=== PATIENT | female | born 1990 | race Caucasian/White ===

== ENCOUNTER 2019-12-17 21:39 | Emergency (ER) | payer BC ==
[2019-12-17] MEDS ORDERED: Albuterol/Ipratropium 3.0-0.5 MG/3 ML Neb Soln NEB ONE (22:13)
[2019-12-17] MEDS ORDERED: Albuterol 6.7 GM Inhaler INH ONE (22:14)
[2019-12-17] MEDS ORDERED: Amoxicillin 500 MG Cap PO ONE (22:17)
[2019-12-17] MEDS ORDERED: Azithromycin 250 MG Tab PO ONE (22:17)
--- NOTE | 2019-12-17 22:18 | EDM.PDOC ---
ED HPI GENERAL MEDICAL PROBLEM - General Chief Complaint: Fever Stated Complaint: POSSIBLE FLU Time Seen by Provider: 12/17/19 21:51 Source of Information: Reports: Patient History Limitations: Reports: No Limitations - History of Present Illness INITIAL COMMENTS - FREE TEXT/NARRATIVE: Patient is a 29-year-old female who presents with complaints of fever, chest pain, cough, and body aches for the last week. Patient states that her children were sick with similar symptoms, however they have gotten better however she feels like she is getting worse. She states when she lies down she can feel a crackling in her chest and her chest feels tight. She has had intermittent fevers at home current temp in the ER is 100.4, however she did recently have ibuprofen. She denies any significant shortness of breath. She has no chronic health conditions. Chest Pain Score (Numeric/FACES): 3 - Related Data Allergies Allergy/AdvReac Type Severity Reaction Status Date / Time No Known Allergies Allergy Verified 12/17/19 21:52 Home Meds: Home Meds Multivitamin with Minerals [Multiple Vitamin] 1 tab PO DAILY 03/17/15 [History] Amoxicillin 1,000 mg PO TID #14 capsule 12/17/19 [Rx] Azithromycin 250 mg PO BEDTIME 4 Days #4 tablet 12/17/19 [Rx] Past Medical History - Past Health History Medical/Surgical History: Denies Medical/Surgical History HEENT History: Reports: None Cardiovascular History: Reports: None Respiratory History: Reports: None Gastrointestinal History: Reports: None Genitourinary History: Reports: Renal Calculus [employer] History: Reports: Musculoskeletal History: Reports: None Neurological History: Reports: None Psychiatric History: Reports: None Endocrine/Metabolic History: Reports: None Hematologic History: Reports: None Immunologic History: Reports: None Oncologic (Cancer) History: Reports: None Dermatologic History: Reports: None - Infectious Disease History Infectious Disease History: Reports: None - Past Surgical History HEENT Surgical History: Reports: Tonsillectomy Social & Family History - Family History Family Medical History: Noncontributory Cardiac: Reports: Hypertension Other Oncologic Family History: grandparent - Tobacco Use Smoking Status *Q: Never Smoker - Caffeine Use Caffeine Use: Reports: Coffee - Recreational Drug Use Recreational Drug Use: No ED ROS GENERAL - Review of Systems Review Of Systems: Comprehensive ROS is negative, except as noted in HPI. ED EXAM, GENERAL - Physical Exam Exam: See Below Exam Limited By: No Limitations General Appearance: Alert, WD/WN, No Apparent Distress Ears: Normal External Exam, Normal Canal, Hearing Grossly Normal, Normal TMs Throat/Mouth: Normal Inspection, Normal Lips, Normal Teeth, Normal Gums, Normal Oropharynx, Normal Voice, No Airway Compromise Respiratory/Chest: No Respiratory Distress, No Accessory Muscle Use, Chest Non- Tender, Decreased Breath Sounds (Right lower lobe). No: Crackles, Rales, Rhonchi, Wheezing Cardiovascular: Normal Peripheral Pulses, Regular Rate, Rhythm, No Edema, No Gallop, No JVD, No Murmur, No Rub Neurological: Alert, Oriented, CN II-XII Intact, Normal Cognition, Normal Gait, Normal Reflexes, No Motor/Sensory Deficits Psychiatric: Normal Affect, Normal Mood Skin Exam: Warm, Dry, Intact, Normal Color, No Rash Course - Vital Signs Last Recorded V/S: Last Vital Signs Temp 100.4 F 12/17/19 21:50 Pulse 87 12/17/19 21:50 Resp 18 12/17/19 21:50 BP 117/70 12/17/19 21:50 Pulse Ox 95 12/17/19 21:50 - Orders/Labs/Meds Orders: Active Orders 24 hr Category Date Time Status Chest 2V [CR] Stat Exams 12/17/19 21:53 Ordered - Re-Assessments/Exams Free Text/Narrative Re-Assessment/Exam: On exam, lung sounds are diminished in the right lower lobe and patient has a moist cough. Oxygen saturations are normal at 95 to 97% on room air. She is not tachycardic. Chest x-ray does show an infiltrate in the right lower lobe. We will start her on oral antibiotics tonight and then send a prescription for the remaining doses. I have also ordered a DuoNeb treatment and an albuterol inhaler to be sent home with her. Discharge instructions as noted. Departure - Departure Time of Disposition: 22:22 Disposition: Home, Self-Care 01 Condition: Fair Clinical Impression: Pneumonia Qualifiers: Pneumonia type: due to unspecified organism Laterality: right Lung location: lower lobe of lung Qualified Code(s): J18.9 - Pneumonia, unspecified organism - Discharge Information *PRESCRIPTION DRUG MONITORING PROGRAM REVIEWED*: No *COPY OF PRESCRIPTION DRUG MONITORING REPORT IN PATIENT MARIPOS[place]: No Prescriptions: Amoxicillin 1,000 mg PO TID #14 capsule Azithromycin 250 mg PO BEDTIME 4 Days #4 tablet Instructions: Community-Acquired Pneumonia, Adult, [id number] Referrals: PCP,None [Primary Care Provider] - Additional Instructions: You were seen in the emergency department for cough, chest tightness, fever, and body aches for the last week. A chest x-ray was done and did show that you have a right lower lobe pneumonia. While in the ER he did receive a DuoNeb breathing treatment as well as your first dose of both antibiotics. You are also sent home with an albuterol inhaler. This inhaler may be used 2 puffs every 4 hours as needed for chest tightness and shortness of breath. Been prescribed two antibiotics to cover for the various microorganisms that could be causing the pneumonia. The amoxicillin you will take 3 times daily for 5 days and the Zithromax you will take once daily in the evening for 5 days. You did receive a first dose of both these medications here. The remaining doses have been electronically prescribed to clinic pharmacy. You should begin to see significant improvement in your symptoms over the course of the next couple days. If you experience any worsening symptoms or fail to improve as expected I would recommend that you either return to the emergency department or follow-up with your primary care provider. Sepsis Event Note - Evaluation Sepsis Screening Result: No Definite Risk - Focused Exam Vital Signs: Vital Signs Temp Pulse Resp BP Pulse Ox 12/17/19 21:50 100.4 F 87 18 117/70 95 Date Exam was Performed: 12/17/19 Time Exam was Performed: 22:13 - My Orders Last 24 Hours: My Active Orders 12/17/19 21:53 Chest 2V [CR] Stat - Assessment/Plan Last 24 Hours: My Active Orders 12/17/19 21:53 Chest 2V [CR] Stat
[2019-12-17 22:56] VITALS: BP 106/52; PULSE 99
--- NOTE | 2019-12-18 07:16 | CR ---
Chest: Two views of the chest were obtained. Comparison: No prior chest imaging is available. Consolidating density noted within the right lower lung. Right upper lung and left lung are clear. Heart size and mediastinum are normal. Bony structures are unremarkable. Impression: 1. Consolidating density within the right lower lung most likely representing pneumonia. Diagnostic code #3 This report was dictated in [place] Standard Time
== END 2019-12-17 22:55 | disposition home or self-care (01) ==
LOC: JD.ED 21:39
DX: J18.9 Pneumonia, unspecified organism (principal)
CPT/HCPCS: 71046; 94640; 99284; A9270; J7620-GY